=== PATIENT | male | born 1950 | race Caucasian/White ===

== ENCOUNTER 2021-09-10 21:43 | Emergency (ER) | payer MEDICARE, SELFPAY ==
[2021-09-10] MEDS ORDERED: Boostrix 0.5 ML (Tdap) VIAL ONE (21:55)
== END 2021-09-10 22:45 | disposition home or self-care (01) ==
LOC: BURERS 21:43
DX: S60.221A Contusion of right hand, initial encounter (principal); E11.9 Type 2 diabetes mellitus without complications; E78.5 Hyperlipidemia, unspecified; V40.5XXA Car driver injured in collision with pedestrian or animal in traffic accident, initial encounter
CPT/HCPCS: 90471; 90715